=== PATIENT | female | born 1975 | race Caucasian/White ===

== ENCOUNTER → 2016-05-28 | Day surgery (SDC) | payer OTHER ==
[2016-05-05 14:45] VITALS: BMI 26.0
--- NOTE | 2016-05-05 15:10 | PAT Medication Instructions ---
Service Date May 05, 2016. Current Home Medication List Cholecalciferol (Vitamin D 1000 Unit), 1,000 INTER.UNIT PO QDL Ferrous Sulfate (Iron Supplement *), 325 MG PO BID Folic Acid (Folvite), 1 MG PO 6XWK Methotrexate Sodium (Methotrexate), 10 MG PO WK Multivitamin (Multivitamin), 1 TABLET PO QDL [Calcium], 500 MG PO QDL [Progesterone Pill], Unknown Dose Medication Instructions For Your Scheduled Surgery - Hold the following medications 2 weeks prior to surgery; please check with Chaperone: Methotrexate Sodium (Methotrexate), 10 MG PO WK - Hold the following medications the morning of surgery: Multivitamin (Multivitamin), 1 TABLET PO QDL Cholecalciferol (Vitamin D 1000 Unit), 1,000 INTER.UNIT PO QDL [Calcium], 500 MG PO QDL Ferrous Sulfate (Iron Supplement *), 325 MG PO BID Folic Acid (Folvite), 1 MG PO 6XWK - Take the following medications the morning of surgery with a sip of water OTHERWISE NOTHING TO EAT OR DRINK AFTER MIDNIGHT: [Progesterone Pill], Unknown Dose (if taking in morning) - Take the following medications as scheduled the night before surgery: Ferrous Sulfate (Iron Supplement *), 325 MG PO BID If you have any questions please call us at [phone] or [phone] or [phone]
[2016-05-05 15:34] LABS: BASO % 0.3 %; BASO ABS # 0.02 K/uL (0-0.2); COMPLETE YES; EOS % 2.7 %; IG% 0.2 %; LYMPH % 26.5 %; LYMPH ABS # 1.56 K/uL (1.2-3.4); MEAN CELL VOLUME 80.6 fL (80-100); MEAN CORPUSCULAR HEMOGLOBIN 25.7 pg (25-34); MEAN CORPUSCULAR HGB CONC 31.9 g/dl (32-36); MEAN PLATELET VOLUME 9.1 fL (7.4-10.4); MONO % 8.8 %; NEUT % 61.5 %; PLATELET COUNT 330 K/uL (130-400); RED BLOOD COUNT 3.97 M/uL (4.2-5.4); WHITE BLOOD COUNT 5.88 K/uL (4.8-10.8)
[2016-05-05 15:36] LABS: URINE APPEARANCE CLEAR (CLEAR); URINE BILIRUBIN NEG (NEG); URINE COLOR YELLOW; URINE EPITHELIAL CELL AUTO >30 /lpf (0-5); URINE NITRITE NEG (NEG); URINE SPECIFIC GRAVITY 1.008 (1.000-1.030); UROBILINOGEN NEG (NEG)
[2016-05-05 15:42] LABS: INR 0.9 (0.9-1.1); PROTHROMBIN TIME (PATIENT) 10.1 SECONDS (9.0-12.0)
[2016-05-05 15:52] LABS: MANUAL MICROSCOPIC REQUIRED? NO; REVIEW REQ? NO
[2016-05-05 16:07] LABS: ALT/SGPT 20 U/L (12-78); AST/SGOT 11 U/L (15-37); BLOOD UREA NITROGEN 12 mg/dl (7-18); BUN/CREATININE RATIO 14.6 (10-20); CALCIUM 8.1 mg/dl (8.5-10.1); CARBON DIOXIDE 25 mmol/L (21-32); CHLORIDE 107 mmol/L (98-107); CREATININE 0.83 mg/dl (0.60-1.20); GLUCOSE 96 mg/dl (70-99); POTASSIUM 3.8 mmol/L (3.5-5.1); SODIUM 140 mmol/L (136-145)
[2016-05-05 16:09] LABS: ALKALINE PHOSPHATASE 78 U/L (45-117)
[~2016-05-28] VITALS: Ht 175.3 cm; Wt 80.6 kg
[2016-05-28] VITALS (8 sets, daily range): BP systolic 98–131; BP diastolic 57–76; PULSE 70–93; TEMP 36.8–37.1; O2SAT 96–99; Ht 175.3 cm; Wt 80.6 kg
[~2016-05-28] MED LIST: ACETAMINOPHEN 325 MG TAB PO PRN; ARISTA ABSORBABLE HEMOSTAT 3GM TOP ONE; ATROPINE SULFATE 0.1 MG/ML 5ML SYR IV PRN; BUPIVACAINE/EPINEPHRINE 0.5% MPF 1:200,000 30 ML VIAL ONE; CHOL100027 PO; CLINDAMYCIN 600 MG/54 ML D5W 50 ML IV SCH; Calcium PO; DEXAMETHASONE SOD INJ 4 MG/ML VIAL ONE; DiphenhydrAMINE HCL 50 MG/ML VIAL ONE; EpHEDrine SULFATE INJ 50 MG/ML AMP IV PRN; FENTANYL CITRATE INJ 50 MCG/1 ML 2 ML VIAL ONE; FOLI1TAB7 PO; FRRS300 PO; GENTAMICIN INJ 120 MG in DEXTROSE 5% 100ML 100 ML IV SCH; GLYCOPYRROLATE INJ 0.2 MG/ML VIAL ONE; IBUPROFEN 600 MG TAB PO PRN; IV FLUIDS COMPLETED PRN; LACTATED RINGER'S 1000ML 1,000 ML IV SCH; LIDOCAINE HCL 2% 2 ML VIAL (20MG/ML) ONE; MEPERIDINE HCL 50 MG/ML CARP IV PRN; MEPERIDINE HCL 75 MG/ML CARP IV PRN; METH2.5T PO; METOPROLOL TARTRATE 1 MG/ML VIAL ONE; MIDAZOLAM HCL 1 MG/ML 2ML VIAL ONE; MTR600X PO; MULT-506 PO; NEOSTIGMINE METHYLSULFATE 5 MG/5 ML SYR ONE; NURSING VERBAL MED ORDER ONE; ONDANSETRON INJ 2 MG/ML 2 ML VIAL IV PRN; ONDANSETRON INJ 2 MG/ML 2 ML VIAL ONE; OXYC-57 PO; OXYCODONE/ACETAMINOPHEN 5-325 TAB PO PRN; PROMETHAZINE HCL INJ 12.5 MG in SODIUM CHLORIDE 0.9% 50ML 50 ML IV PRN; PROMETHAZINE HCL INJ 25 MG in SODIUM CHLORIDE 0.9% 50ML 50 ML IV PRN; PROPOFOL IV EMULSION 10 MG/ML 20 ML VIAL IV ONE; ROCURONIUM BROMIDE 10 MG/ML 5 ML VIAL ONE; [UNRECOGNIZED DRUG - REMARK]
[2016-05-28 06:51] LABS: PREG INTERNAL NEGATIVE QC NEG CLEAR BACKGROUND; PREG INTERNAL POSITIVE QC POS CONTROL LINE
--- NOTE | 2016-05-28 07:02 | History & Physical Bridge Note ---
H&P Re-Evaluation Bridge Note: I have examined the patient, reviewed the History & Physical and in the interval since the performance of the History & Physical I have noted the following changes of clinical significance: No changes noted
--- NOTE | 2016-05-28 09:23 | Discharge Instructions ---
Discharge Instructions Date of Service May 28, 2016. Admission Reason for Admission: Endometrial Polyp, Persistent Right Ovarian Cyst Discharge Discharge Diagnosis / Problem: Hysteroscopy, Polypectomy, D&C, Laparoscopy, RSO , fulguarion of endometrio Discharge Goals Goal(s): Routine recovery after surgery Activity Recommendations Activity Limitations: as noted below Lifting Limitations: no more than 10 pounds Exercise/Sports Limitations: until after follow-up appointment May Resume Sexual Activity: after follow-up appointment Shower/Bathe: keep incision dry Driving or Machine Use: ACTIVITY RECOMMENDATIONS: * Avoid tampons, douching, hot tubs, pools, and intercourse until bleeding has stopped. * May shower as usual. * No strenuous activity for 24-48 hours. After 24-48 hours, you may do anything you feel like doing (driving and sports are okay). SPECIAL CARE INSTRUCTIONS: Special Diet: * Mild nausea may occur in the immediate post-operative period. * Take clear liquids such as tea, cola or bouillon until all nausea has subsided; you may then resume your normal diet. Special Care: * Light bleeding and vaginal spotting can last from a few days to 3-4 weeks. Call your doctor if bleeding becomes heavier than the heaviest part of your period. * Check your temperature twice a day for one week. If it goes above 100.4 degrees Fahrenheit (38.0 Celsius), notify your doctor. * Call your doctor's office for an appointment for 2 weeks after your surgery. FOLLOW-UP VISIT: Call your doctor's office for an appointment for 2 SPECIAL CARE INSTRUCTIONS: * Check temperature twice daily for one week. Report any elevation over 100.4 degrees Fahrenheit (38.0 degrees Celsius). * Call office in the next few days for return appointment. * You may experience some vaginal spotting and/or bleeding, this is normal for one or two weeks and should not alarm you. * Post-operative discomfort may consist of a sore throat, a "bloated" feeling and pain in the shoulders. These are normal symptoms which usually only last for two or three days. FOLLOW UP VISIT: Keep any scheduled doctor appointments. weeks after your surgery. . Current Hospital Diet Patient's current hospital diet: Discharge Diet Recommended Diet: Regular Diet Procedures Procedures Performed: Exam Under Anesthesia, Hysteroscopy, Polpectomy with Myosure, Dilation Currettage; Laparoscopic Right Ovarian Cystectomy, Right Salpingo-Oophorectomy Pending Studies Studies pending at discharge: no Medical Emergencies . Who to Call and When: Medical Emergencies: If at any time you feel your situation is an emergency, please call 911 immediately. . Non-Emergent Contact Non-Emergency issues call your: Primary Care Provider, Surgeon Call Non-Emergent contact if: temperature is above 100.5, your pain is not controlled, your pain is worsening, wound has increased drainage, wound has increased redness, wound has increased pain . . "Provider Documentation" section prepared by Tera Wood. VTE Core Measure Inpt VTE Proph given/why not?: Treatment not indicated
--- NOTE | 2016-05-28 09:28 | [facility] Post Operative Brief Note ---
Immediate Operative Summary Operative Date May 28, 2016. Pre-Operative Diagnosis Endometrial polyp, right ovarian cyst Post-Operative Diagnosis Same, endometrioisis Procedure(s) Performed Exam Under Anesthesia, Hysteroscopy, Polpectomy with Myosure, Dilation Currettage; operative Laparoscopy, fulguration of endometriosis, Right Salpingo-Oophorectomy, repair of cervical laceration Surgeon Dr Bailey [employer] Developer Surgeon(s) Dr Lacey Estimated Blood Loss 100ML Findings 2x1 cm endometrial polyp and endometriosis Specimens A. Endometrial polyp B. Endometrial curretting C. Right fallopian tube and ovary Drains stragith cath 250 ml urine Anesthesia GETA Complication(s) None Disposition Recovery Room / PACU
[2016-05-28] MEDS: FENTANYL CITRATE INJ 50 MCG/1 ML 2 ML VIAL IV PRN ×9 (09:32→10:15)
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
--- NOTE | 2016-05-28 11:02 | Anesthesiology Progress Note ---
Anesthesia Post Op Note Date & Time May 28, 2016 at 11:02 Vital Signs Pain Intensity: 1 Vital Signs Past 12 Hours Date Time Temp Pulse Resp B/P Pulse Ox O2 Delivery O2 Flow Rate FiO2 05/28/16 10:42 87 12 99 05/28/16 10:42 86 12 05/28/16 10:40 120/67 05/28/16 10:37 73 15 05/28/16 10:37 73 15 100 05/28/16 10:35 122/67 05/28/16 10:32 67 18 100 05/28/16 10:32 67 18 05/28/16 10:30 114/65 05/28/16 10:27 88 21 05/28/16 10:27 91 21 100 05/28/16 10:25 117/70 05/28/16 10:22 66 15 05/28/16 10:22 65 15 100 05/28/16 10:21 73 28 100 05/28/16 10:21 72 28 05/28/16 10:20 109/68 05/28/16 10:16 74 23 100 05/28/16 10:16 73 23 05/28/16 10:15 119/66 05/28/16 10:11 80 16 100 05/28/16 10:11 80 16 05/28/16 10:10 115/67 05/28/16 10:09 36.9 72 16 119/66 100 Nasal Cannula 2 05/28/16 10:06 70 13 05/28/16 10:06 71 13 100 05/28/16 10:05 120/58 05/28/16 10:01 77 14 05/28/16 10:01 78 14 100 05/28/16 10:00 127/70 05/28/16 09:56 80 15 05/28/16 09:56 82 15 100 05/28/16 09:55 117/68 05/28/16 09:51 68 11 05/28/16 09:51 68 11 100 05/28/16 09:50 124/63 05/28/16 09:46 75 24 100 05/28/16 09:46 74 24 05/28/16 09:45 122/70 05/28/16 09:44 94 27 05/28/16 09:44 94 27 100 05/28/16 09:40 122/72 05/28/16 09:39 79 22 100 05/28/16 09:39 80 22 05/28/16 09:35 122/66 05/28/16 09:34 82 18 100 05/28/16 09:34 81 18 05/28/16 09:30 125/71 05/28/16 09:29 83 24 05/28/16 09:29 83 24 100 05/28/16 09:25 118/70 05/28/16 09:24 84 20 134/73 100 05/28/16 09:24 37.3 91 16 134/73 100 Mask 10 05/28/16 09:24 84 20 05/28/16 05:37 36.9 93 18 131/76 97 Room Air Notes Mental Status: alert / awake / arousable, participated in evaluation Pt Amnestic to Procedure: Yes Nausea / Vomiting: adequately controlled Pain: adequately controlled Airway Patency, RR, SpO2: stable & adequate BP & HR: stable & adequate Hydration State: stable & adequate Anesthetic Complications: no major complications apparent
[2016-05-28 13:11] LABS: HEMATOCRIT 34.8 % (37-47)
== END | disposition home or self-care (01) ==
LOC: C.ACU 05:12
PROVIDERS: ATTEND Obstetrics & Gynecology
DX: N92.0 Excessive and frequent menstruation with regular cycle (principal); N84.0 Polyp of corpus uteri; N83.201 Unspecified ovarian cyst, right side; N80.1 Endometriosis of ovary; Z98.890 Other specified postprocedural states; E78.5 Hyperlipidemia, unspecified

== ENCOUNTER 2017-05-17 09:42 | Emergency (ER) | payer OTHER ==
[~2017-05-17] VITALS: Ht 177.8 cm; Wt 81.8 kg
[~2017-05-17 09:42] MED LIST changes: -ACETAMINOPHEN 325 MG TAB PO PRN; -ARISTA ABSORBABLE HEMOSTAT 3GM TOP ONE; -ATROPINE SULFATE 0.1 MG/ML 5ML SYR IV PRN; -BUPIVACAINE/EPINEPHRINE 0.5% MPF 1:200,000 30 ML VIAL ONE; -CLINDAMYCIN 600 MG/54 ML D5W 50 ML IV SCH; -DEXAMETHASONE SOD INJ 4 MG/ML VIAL ONE; -DiphenhydrAMINE HCL 50 MG/ML VIAL ONE; -EpHEDrine SULFATE INJ 50 MG/ML AMP IV PRN; -FENTANYL CITRATE INJ 50 MCG/1 ML 2 ML VIAL ONE; -FOLI1TAB7 PO; +FOLI1TAB8 PO; -GENTAMICIN INJ 120 MG in DEXTROSE 5% 100ML 100 ML IV SCH; -GLYCOPYRROLATE INJ 0.2 MG/ML VIAL ONE; -IBUPROFEN 600 MG TAB PO PRN; -IV FLUIDS COMPLETED PRN; -LACTATED RINGER'S 1000ML 1,000 ML IV SCH; -LIDOCAINE HCL 2% 2 ML VIAL (20MG/ML) ONE; -MEPERIDINE HCL 50 MG/ML CARP IV PRN; -MEPERIDINE HCL 75 MG/ML CARP IV PRN; -METOPROLOL TARTRATE 1 MG/ML VIAL ONE; -MIDAZOLAM HCL 1 MG/ML 2ML VIAL ONE; -NEOSTIGMINE METHYLSULFATE 5 MG/5 ML SYR ONE; -NURSING VERBAL MED ORDER ONE; -ONDANSETRON INJ 2 MG/ML 2 ML VIAL IV PRN; -ONDANSETRON INJ 2 MG/ML 2 ML VIAL ONE; -OXYCODONE/ACETAMINOPHEN 5-325 TAB PO PRN; -PROMETHAZINE HCL INJ 12.5 MG in SODIUM CHLORIDE 0.9% 50ML 50 ML IV PRN; -PROMETHAZINE HCL INJ 25 MG in SODIUM CHLORIDE 0.9% 50ML 50 ML IV PRN; -PROPOFOL IV EMULSION 10 MG/ML 20 ML VIAL IV ONE; -ROCURONIUM BROMIDE 10 MG/ML 5 ML VIAL ONE
[2017-05-17 09:49] VITALS: TEMP 36.7; Ht 177.8 cm; Wt 81.8 kg
--- NOTE | 2017-05-17 10:28 | EMERGENCY ROOM VISIT NOTE ---
History Report prepared by Mars: Chucky Andres Under the Supervision of: Dr. Carlos Olivera D.O. First contact with patient: 10:07 Chief Complaint: CHEST PAIN Stated Complaint: CHEST PAIN,TIGHTNESS Nursing Triage Summary: Pt ambulatory to triage reporting left sided chest pain that woke her from sleep at 0500. Denies sob, dizziness, lightheaded, n/v. Pt states hx of RA and having a flare. History of Present Illness The patient is a 42 year old female who presents to the Emergency Room with complaints of persistent chest pain since 0530 this morning. She notes the chest pain woke her up from her sleep. She states that she has had a headache since last night. She states the chest pain has decreased in severity. She currently rates her pain a 4/10 in severity. She notes mild back pain. She has a history of RA. She states that she had back pain a few weeks ago and was treated with Prednisone, which provided relief. She denies any history of pleurisy or costochondritis. She denies any history of blood clots. She denies any shortness of breath. She denies any pain with a deep breath. She denies any abdominal pain, coughs, nausea, or vomiting. She denies any joint swelling or pain in the legs. She denies any rashes on chest or back. She has a family history of HLD. She uses an IUD and states that she began spotting this morning. She has a history cholecystectomy. She denies any tobacco use. She occasionally drinks alcohol. Source of History: patient Onset: 529 this morning Position: chest Symptom Intensity: 4/10 Timing: other (persistent) Associated Symptoms: + headache, + back pain, No cough, No SOB, No nausea, No vomiting, No abdominal pain, No rash Note: She denies any joint swelling or pain in the legs. Review of Systems See HPI for pertinent positives & negatives. A total of 10 systems reviewed and were otherwise negative. Past Medical & Surgical Medical Problems: (1) Cholecystectomy (2) CHRONIC CHOLECYSTITIS (3) Clostridium difficile colitis (4) DEL W 3 DEG LACERAT-DEL (5) Dyslipidemia (6) Heavy periods (7) Hypokalemia (8) Rheumatoid arteritis Family History FH: hyperlipidemia Social History Smoking Status: Never Smoker Smokeless Tobacco Use: No Alcohol Use: occasionally Drug Use: none Marital Status: Housing Status: lives with family Occupation Status: employed Current/Historical Medications Scheduled Atorvastatin (Lipitor), 40 MG PO DAILY Cholecalciferol (Vitamin D 1000 Unit), 1,000 INTER.UNIT PO DAILY Folic Acid (Folvite), 1 MG PO 6XWK Methotrexate Sodium (Methotrexate), 10 MG PO WK Multivitamin (Multivitamin), 1 TABLET PO QDL [Calcium], 500 MG PO QDL Scheduled PRN Ibuprofen (Ibuprofen), 600 MG PO Q6H PRN for Pain,SERRANO,cramping,or fever Allergies Coded Allergies: Cephalexin (Verified Adverse Reaction, Intermediate, C-DIFF, 05/17/17) Physical Exam Vital Signs Date Time Temp Pulse Resp B/P (MAP) Pulse Ox O2 Delivery O2 Flow Rate FiO2 05/17/17 12:14 85 18 123/78 100 05/17/17 10:35 98 Room Air 05/17/17 10:12 87 05/17/17 09:49 36.7 88 18 145/78 98 Room Air Physical Exam GENERAL: Patient is awake, alert, and in no acute distress. Patient is resting comfortably and showing no signs of anxiety EYES: The conjunctivae are clear. The pupils are round and reactive. EARS, NOSE, MOUTH AND THROAT: The nose is without any evidence of any deformity. Mucous membranes are moist tongue is midline NECK: The neck is nontender and supple. RESPIRATORY: Normal respiratory effort is noted there is no evidence of wheezing rhonchi or rales CARDIOVASCULAR: Regular rate and rhythm noted there no murmurs rubs or gallops normal S1 normal S2 GASTROINTESTINAL: The abdomen is soft. Bowel sounds are present in all quadrants. Abdomen is nontender MUSCULOSKELETAL/EXTREMITIES: There is no evidence of gross deformity full range of motion is noted in the hips and shoulders. Tenderness with palpation of left anterior chest wall. SKIN: There is no obvious evidence of any rash. There are no petechiae, pallor or cyanosis noted. NEUROLOGIC: Patient is awake alert and oriented x3 strength is symmetric patellar reflexes are 2+ bilaterally Medical Decision & Procedures ER Provider Diagnostic Interpretation: Radiology results as stated below per my review and radiologist interpretation: CLINICAL HISTORY: Atypical chest pain. FINDINGS: An AP, portable, upright chest radiograph is compared to study dated 08/27/2011. The examination is degraded by portable technique and patient rotation. The cardiomediastinal silhouette is unremarkable. The lungs and pleural spaces are clear. No pneumothorax is seen. The bony thorax is grossly intact. IMPRESSION: No active disease in the chest. Electronically signed by: Robson Jaimes M.D. 05/17/2017 10:30 AM Dictated Date/Time: 05/17/2017 10:28 AM Laboratory Results 05/17/17 10:19 Red Blood Count 4.75, Mean Corpuscular Volume 93.1, Mean Corpuscular Hemoglobin 30.5, Mean Corpuscular Hemoglobin Concent 32.8, Mean Platelet Volume 9.2, Neutrophils (%) (Auto) 80.0, Lymphocytes (%) (Auto) 11.6, Monocytes (%) (Auto) 6.9, Eosinophils (%) (Auto) 1.0, Basophils (%) (Auto) 0.2, Neutrophils # (Auto) 10.10, Lymphocytes # (Auto) 1.46, Monocytes # (Auto) 0.87, Eosinophils # (Auto) 0.13, Basophils # (Auto) 0.02 05/17/17 10:19 Test 05/17/17 10:19 05/17/17 10:26 White Blood Count 12.62 K/uL (4.8-10.8) Red Blood Count 4.75 M/uL (4.2-5.4) Hemoglobin 14.5 g/dL (12.0-16.0) Hematocrit 44.2 % (37-47) Mean Corpuscular Volume 93.1 fL (80-100) Mean Corpuscular Hemoglobin 30.5 pg (25-34) Mean Corpuscular Hemoglobin Concent 32.8 g/dl (32-36) Platelet Count 262 K/uL (130-400) Mean Platelet Volume 9.2 fL (7.4-10.4) Neutrophils (%) (Auto) 80.0 % Lymphocytes (%) (Auto) 11.6 % Monocytes (%) (Auto) 6.9 % Eosinophils (%) (Auto) 1.0 % Basophils (%) (Auto) 0.2 % Neutrophils # (Auto) 10.10 K/uL (1.4-6.5) Lymphocytes # (Auto) 1.46 K/uL (1.2-3.4) Monocytes # (Auto) 0.87 K/uL (0.11-0.59) Eosinophils # (Auto) 0.13 K/uL (0-0.5) Basophils # (Auto) 0.02 K/uL (0-0.2) RDW Standard Deviation 48.3 fL (36.4-46.3) RDW Coefficient of Variation 14.3 % (11.5-14.5) Immature Granulocyte % (Auto) 0.3 % Immature Granulocyte # (Auto) 0.04 K/uL (0.00-0.02) Prothrombin Time 10.3 SECONDS (9.0-12.0) Prothromb Time International Ratio 1.0 (0.9-1.1) Activated Partial Thromboplast Time 26.1 SECONDS (21.0-31.0) Partial Thromboplastin Ratio 1.0 Anion Gap 9.0 mmol/L (3-11) Est Creatinine Clear Calc Drug Dose 80.9 ml/min Estimated GFR () 82.9 Estimated GFR (Non- 71.5 BUN/Creatinine Ratio 22.9 (10-20) Calcium Level 8.5 mg/dl (8.5-10.1) Total Bilirubin 0.5 mg/dl (0.2-1) Direct Bilirubin 0.1 mg/dl (0-0.2) Aspartate Amino Transf (AST/SGOT) 18 U/L (15-37) Alanine Aminotransferase (ALT/SGPT) 48 U/L (12-78) Alkaline Phosphatase 82 U/L (45-117) Total Protein 7.4 gm/dl (6.4-8.2) Albumin 3.8 gm/dl (3.4-5.0) Lipase 314 U/L (73-393) Human Chorionic Gonadotropin, Qual NEG (NEG) Bedside D-Dimer 190 ng/mlFEU (0-450) Bedside Troponin I < 0.030 ng/ml (0-0.045) Laboratory results per my review. Medications Administered Medications (Trade) Dose Ordered Sig/Ralph Route Start Time Stop Time Status Last Admin Dose Admin Oxycodone HCl (Roxicodone Immediate Rel Tab) 5 mg NOW STAT PO 05/17/17 11:58 05/17/17 11:59 DC 05/17/17 12:11 5 MG ECG Per My Interpretation Indication: chest pain Rate (beats per minute): 85 Rhythm: normal sinus Findings: no acute ischemic change, no ectopy Comparison ECG Date: no prior available ED Course 1009: The patient was evaluated in room B4B. A complete history and physical examination were performed. 1156: I reassessed the patient at this time. She is resting comfortably. I discussed the results and treatment plan with the patient. I answered all pertaining questions that she had. She expressed understanding and verbalized agreement. The patient will be discharged home. 1158: Ordered Oxycodone HCl 5 mg PO Medical Decision Prior records/ancillary studies reviewed. Triage Nursing notes reviewed. The patient's history was concerning for chest pain. Differential diagnosis: Etiologies such as cardiac ischemia, aortic dissection, pulmonary embolism, pneumonia, pneumothorax, musculoskeletal, infections, pericarditis, myocarditis , esophageal rupture, gastrointestinal, as well as others were entertained. The patient is a 42-year-old female who presented to the emergency department for left-sided chest pain. The patient states that she awoke with this discomfort. It was reproducible with palpation as well as deep inspiration. The patient does have a history of rheumatoid arthritis. It is possible this represents a pleuritic type of pain however further studies were undertaken to ensure that this was not cardiac in nature or due to a pulmonary embolism. I discussed the patient's laboratory and radiographic studies with her. She was given pain medication in the emergency department. I also discussed the limitations of the emergency department workup for chest pain with her. She was encouraged to rest and avoid any strenuous activity. She was also encouraged to continue all medications as prescribed. Otherwise she was encouraged to return to the emergency department immediately if symptoms change worsen or the need arises. Medication Reconcilliation Current Medication List: was personally reviewed by me Blood Pressure Screening Patient's blood pressure: Elevated blood pressure Blood pressure disposition: Elevated BP felt to be situational Impression Primary Impression: Pleurisy Additional Impression: Left sided chest pain Scribe Attestation The scribe's documentation has been prepared under my direction and personally reviewed by me in its entirety. I confirm that the note above accurately reflects all work, treatment, procedures, and medical decision making performed by me. Departure Information Dispostion Home / Self-Care Referrals Jim Bhagat M.D. (PCP) Forms Call Back Authorization, HOME CARE DOCUMENTATION FORM, IMPORTANT VISIT INFORMATION Patient Instructions My [facility], Pleurisy Additional Instructions Call your family doctor to schedule a follow-up appointment. Rest and avoid any strenuous activities. Continue all medications as prescribed. Continue using Motrin and Tylenol for pain. Return to the emergency department immediately if symptoms change worsening the need arises. Problem Qualifiers
--- NOTE | 2017-05-17 10:32 | DIAGNOSTIC IMAGING REPORT ---
SINGLE VIEW CHEST CLINICAL HISTORY: Atypical chest pain. FINDINGS: An AP, portable, upright chest radiograph is compared to study dated 08/27/2011. The examination is degraded by portable technique and patient rotation. The cardiomediastinal silhouette is unremarkable. The lungs and pleural spaces are clear. No pneumothorax is seen. The bony thorax is grossly intact. IMPRESSION: No active disease in the chest. Electronically signed by: Robson Jaimes M.D. 05/17/2017 10:30 AM Dictated Date/Time: 05/17/2017 10:28 AM
[2017-05-17 10:35] VITALS: O2SAT 98
[2017-05-17 10:49] LABS: BASO % 0.2 %; BASO ABS # 0.02 K/uL (0-0.2); EOS ABS # 0.13 K/uL (0-0.5); HEMATOCRIT 44.2 % (37-47); HEMOGLOBIN 14.5 g/dL (12.0-16.0); IG# 0.04 K/uL (0.00-0.02); LYMPH % 11.6 %; LYMPH ABS # 1.46 K/uL (1.2-3.4); MEAN CELL VOLUME 93.1 fL (80-100); MEAN CORPUSCULAR HEMOGLOBIN 30.5 pg (25-34); MEAN CORPUSCULAR HGB CONC 32.8 g/dl (32-36); MEAN PLATELET VOLUME 9.2 fL (7.4-10.4); MONO % 6.9 %; MONO ABS # 0.87 K/uL (0.11-0.59); PLATELET COUNT 262 K/uL (130-400); RED CELL DISTRIBUTION WIDTH CV 14.3 % (11.5-14.5); RED CELL DISTRIBUTION WIDTH SD 48.3 fL (36.4-46.3); WHITE BLOOD COUNT 12.62 K/uL (4.8-10.8)
[2017-05-17 10:53] LABS: PTT PATIENT 26.1 SECONDS (21.0-31.0)
[2017-05-17 11:03] LABS: ALBUMIN 3.8 gm/dl (3.4-5.0); CALCIUM 8.5 mg/dl (8.5-10.1); CREATININE 0.97 mg/dl (0.60-1.20); POTASSIUM 3.7 mmol/L (3.5-5.1)
[2017-05-17 11:05] LABS: TOTAL PROTEIN 7.4 gm/dl (6.4-8.2)
[2017-05-17] MEDS ORDERED: ATOR-24 PO (11:05)
[2017-05-17] MEDS ORDERED: OXYCODONE HCL IR 5 MG TAB (IMMEDIATE RELEASE) PO STA (11:58)
[2017-05-17 12:14] VITALS: BP 123/78; PULSE 85; O2SAT 100
== END 2017-05-17 12:15 | disposition home or self-care (01) ==
LOC: C.EDB 09:43
DX: R09.1 Pleurisy (principal); R07.9 Chest pain, unspecified; M06.9 Rheumatoid arthritis, unspecified; E78.5 Hyperlipidemia, unspecified; Z90.49 Acquired absence of other specified parts of digestive tract; Z86.19 Personal history of other infectious and parasitic diseases; Z82.49 Family history of ischemic heart disease and other diseases of the circulatory system; Z88.1 Allergy status to other antibiotic agents